=== PATIENT | female | born 2000 | race Caucasian/White ===

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

== ENCOUNTER 2020-02-27 13:08 | Inpatient (IN) | payer MEDICAID, SELFPAY ==
[2020-02-27 13:50] VITALS: BP 120/80; PULSE 97; RESP 14; TEMP 36.6; O2SAT 99; BMI 34.7
--- NOTE | 2020-02-27 14:15 | HMH.EDUTC ---
[facility] [place] Disposition Clinical Impression: Abscess Disposition: Admitted As Inpatient Condition on Discharge: Good Instructions: Boil Referrals: Seth Steele MD [Primary Care Provider] - Time of Disposition: 14:22 Medical Decision Making - Kurt Inquiry Pt receiving controlled substance: No Vital Signs: 02/27/20 13:50 Temperature 97.9 F Temperature Source Temporal Artery Scan Pulse Rate [Right Brachial] 97 H Respiratory Rate 14 Blood Pressure [Right Arm] 120/80 Blood Pressure Mean [Right Arm] 93 Blood Pressure Source [Right Arm] Automatic Cuff 02 Sat by Pulse Oximetry 99 Oxygen Delivery Method Room Air [facility] [place] HPI - General Chief complaint: Urgent Treatment Center Stated complaint: sore on right leg Time Seen by Provider: 02/27/20 14:15 Mode of Arrival: Ambulatory Source of Information: Patient, Parent(s) Limitations: No Limitations Description of Symptoms (Recalled from Triage Doc. by RN): MOTHER REPORTS BOIL TO PATIENT'S RIGHT THIGH. STATES IT STARTED OUT LIKE A PIMPLE APPROX 1 WEEK AGO AND HAS SINCE BECAME ELARGED AND HARDENED HEENT Symptoms (Recalled from RN notes): No Resp Symptoms (Recalled from RN notes): No Skin Symptoms (Recalled from RN notes): Yes MS Symptoms (Recalled from RN notes): No Functional Status (Recalled from RN notes): WNL - History of Present Illness Provider Complaint: 19 yr old female presents for a abbcess on rt thigh. mom states it are started last week but has become worse. - Related Data Home Medications Medication Instructions Recorded Confirmed PARoxetine HCl [Paxil] 10 mg PO DAILY 02/27/20 02/27/20 Allergies Allergy/AdvReac Type Severity Reaction Status Date / Time No Known Allergies Allergy Verified 01/27/19 14:40 - Worker's Comp Is this a Worker's Comp case?: No [facility] History - Hepatitis A Screen Drug use history?: No High risk sexual behaviors?: No History of sexually transmitted infection?: No Currently employed?: No Childcare worker?: No Do you have indoor plumbing?: Yes Do you have electricity?: Yes Attestation statement:: This patient has been screened for Hepatitis A risk factors. I have reviewed the patient's past medical history: Yes Medical History: Denies:: Internal Pacemaker Laterality Cases: Bilateral: Tonsillectomy Other Surgeries: No: Pacemaker Amputation: No Fractures: No - Social History Smoking Status: Never smoker Alcohol Intake: never Alcohol Intake Frequency:: other Substance Use Type: denies use Occupational Status: other Housing: house Household Members: family, caregiver Family Hx:: Cancer, Hypertension ROS Obtained: Yes Systems reviewed as appropriate & no additional complaints - Constitutional Constitutional: Reports system reviewed and no additional complaints, except as docu - Eyes Eyes: Reports system reviewed and no additional complaints, except as docu, Denies dry eyes - ENT Ears, Nose, Mouth, and Throat: Reports system reviewed and no additional complaints, except as docu, Denies sore throat - Cardiovascular Cardiovascular: Reports system reviewed and no additional complaints, except as docu, Denies chest pain - Respiratory Respiratory: Yes system reviewed and no additional complaints, except as docu, No change in phlegm color - Gastrointestinal Gastrointestingal: Reports: system reviewed and no additional complaints, except as docu. Denies: nausea, vomiting - Genitourinary Female Genitourinary: Reports system reviewed and no additional complaints, except as docu, Denies vaginal discharge - Musculoskeletal Musculoskeletal: Reports system reviewed and no additional complaints, except as docu, Denies joint pain - Integumentary/Breasts Skin/Breast: Reports system reviewed and no additional complaints, except as docu, Denies rash - Neurologic Neurologic: Reports system reviewed and no additional complaints, except as docu, Denies dizziness - Endocrine Endocrine: Reports syste
[2020-02-27 15:15] LABS: Basophils # 0.1 K/mm3 (0-0.2); Basophils % 0.6 % (0.1-2.0); Eosinophils # 0.2 K/mm3 (0.0-0.4); Eosinophils % 1.9 % (0.1-12.0); Hematocrit 38.1 % (37.0-47.0); Hemoglobin 12.1 g/dL (12.2-16.2); Lymphocytes # 2.1 K/mm3 (0.7-4.5); Lymphocytes % 19.4 % (10-50); Mean Corpuscular HGB Conc 31.8 g/dL (31.8-35.4); Mean Corpuscular Hemoglobin 26.8 pg (27.0-31.2); Mean Corpuscular Volume 84.4 fl (81-99); Mean Platelet Volume 7.1 fl (7.4-10.4); Monocytes # 0.6 K/mm3 (0.1-1.0); Monocytes % 5.7 % (1.7-9.3); Neutrophils # 7.9 K/mm3 (1.8-7.8); Neutrophils % 72.4 % (37.0-80.0); Platelet Count 326 K/mm3 (142-424); Red Blood Count 4.52 M/mm3 (4.20-5.40); Red Cell Distribution Width 12.7 % (11.5-17.5); White Blood Count 10.9 K/mm3 (4.5-13.0)
[2020-02-27 15:18] LABS: Chloride 104 mmol/L (98-107); Lactic Acid 0.9 mmol/L (0.7-2.1); Potassium 4.4 mmoL/L (3.5-5.1); Sodium 140 mmol/L (136-145)
[2020-02-27 15:21] LABS: Alanine Aminotransferase 25 U/L (12-78); Albumin Level 4.7 g/dl (3.5-5.0); Albumin/Globulin Ratio 1.6 (1.1-1.8); Alkaline Phosphatase 84 U/L (38-126); Anion Gap 15.4 mEq/L (5-15); Aspartate Amino Transferase 24 U/L (14-36); Bilirubin,Total 0.3 mg/dl (0.2-1.3); Blood Urea Nitrogen 8 mg/dl (7-17); Calcium 9.8 mg/dl (8.4-10.2); Carbon Dioxide 25 mmol/L (22.0-30.0); Creatinine Clearance Estimated 199 mL/min (50-200); Estimated Glomerular Filt Rate 108 ml/min (>60); GFR (African American) 130 ML/MIN (>60); Glucose 98 mg/dl (74-100); Total Protein,Serum 7.7 g/dl (6.3-8.2)
[2020-02-27 15:51] LABS: Coronavirus 19 IgG Antibody Negative (Negative); Coronavirus 19 IgM Antibody Negative (Negative)
[2020-02-27 16:05] VITALS: BP 120/80; PULSE 97; RESP 14; TEMP 36.6; O2SAT 99
--- NOTE | 2020-02-27 16:18 | P.CONPHA_ITS ---
- Pharmacy Consult Date: 02/27/20 Time: 16:18 Referring provider: ROSALVA CARVAJAL Reason for Consult:: VANCOMYCIN DOSING Allergies and ADEs:: Allergies Allergy/AdvReac Type Severity Reaction Status Date / Time No Known Allergies Allergy Verified 01/27/19 14:40 Home Medications:: Home Medications Medication Instructions Recorded Confirmed Type PARoxetine HCl [Paxil] 10 mg PO DAILY 02/27/20 02/27/20 History Height: 1.68 m Weight: 97.522 kg Laboratory Results:: Laboratory Results - last 24 hr 02/27/20 14:30: WBC 10.9, RBC 4.52, Hgb 12.1 L, Hct 38.1, MCV 84.4, MCH 26.8 L, MCHC 31.8, RDW 12.7, Plt Count 326, MPV 7.1 L, Neut % (Auto) 72.4, Lymph % (Auto) 19.4, [place] % (Auto) 5.7, Eos % (Auto) 1.9, Baso % (Auto) 0.6, Neut # (Auto) 7.9 H, Lymph # (Auto) 2.1, [place] # (Auto) 0.6, Eos # (Auto) 0.2, Baso # (Auto) 0.1 02/27/20 14:30: Sodium 140, Potassium 4.4, Chloride 104, Carbon Dioxide 25, Anion Gap 15.4 H, BUN 8, Creatinine 0.70, Estimated Creat Clear 199, Estimated GFR 108, Est GFR ( Amer) 130, Glucose 98, Calcium 9.8, Total Bilirubin 0.3, AST 24, ALT 25, Alkaline Phosphatase 84, Total Protein 7.7, Albumin 4.7, Globulin 3.0, Albumin/Globulin Ratio 1.6 02/27/20 14:30: Lactate 0.9 02/27/20 14:30: SARS-CoV-2 IgG Ab (Rapid) Negative, SARS-CoV-2 IgM Ab (Rapid) Negative Medical History: Denies:: Internal Pacemaker Assessment and Plan - Assessment and plan all Dx Assessment and Plan for all problems:: IBW (kg): 58.61 Dosing wt(kg): 97 Estimated Creatinine clearance (ml/min): 119.6 CRCL method: Cockcroft and Gault using ibw(default). Drug selected: Vancomycin Loading dose (mg): 0 Vd (liters): 77.6 (factor used: 0.8 L/kg) John (hr-1): 0.104 Half life (hrs): 6.66 Recommended dose: 2000 mg Interval: 12 hrs Infusion time (hrs): 2.0 Predicted peak (mcg/mL): 32.6 Predicted trough (mcg/mL): 11.52 Total body weight is being used for vancomycin dosing. Recommendations: Give Vancomycin 2000 mg q 12 hrs with an expected Cpeak of 32.6 mcg/ml and an expected Ctrough of 11.52 mcg/ml Thank you for the consult, will continue to follow. JASON CULLEN, EVRITOD
[2020-02-27 16:43] VITALS: BP 129/81; PULSE 86; RESP 18; TEMP 36.8; O2SAT 97; BMI 30.3
--- NOTE | 2020-02-27 16:57 | HMH.GSCON ---
*Admission Date: 02/27/20 *Reason for consult:: Thigh abscess *History of present illness: Patient is a 19-year-old female from [place] with autism spectrum disorder. Apparently she has had a abscess on the lower right lateral thigh for about 1 week. Reportedly this started as a small pimple-like area. She denies any inciting event. She did try to squeeze it without being able to express any contents. It subsequently became much larger. She was brought to the urgent treatment center this afternoon due to the significant swelling and redness of the area. This felt that she would require inpatient management with incision and drainage done under anesthesia. Review of Systems - Review of Systems Review of systems:: unable to obtain - *Neurologic Denies dizziness [facility] History I have reviewed the patient's past medical history: Yes Medical History: Denies:: Internal Pacemaker *Have you ever received a pneumonia vaccine?: No *Have you received a flu vaccine this season?: No Laterality Cases: Bilateral: Tonsillectomy Other Surgeries: No: Pacemaker Amputation: No Fractures: No - *Social History Smoking Status: Never smoker Alcohol Intake: never Alcohol Intake Frequency:: other Substance Use Type: denies use *Occupational Status:: other Housing: house Household Members: family, caregiver *Travel in the last 8 weeks: None Family Hx:: Cancer, Hypertension Meds Home Medications Medication Instructions Recorded Confirmed Type PARoxetine HCl [Paxil] 10 mg PO DAILY 02/27/20 02/27/20 History Allergies Allergy/AdvReac Type Severity Reaction Status Date / Time No Known Allergies Allergy Verified 01/27/19 14:40 Exam Vital signs and Labs for Last 24 Hours: Temp Pulse Resp BP Pulse Ox 98.2 F 86 18 129/81 97 02/27/20 16:43 02/27/20 16:43 02/27/20 16:43 02/27/20 16:43 02/27/20 16:43 Laboratory Results - last 24 hr 02/27/20 14:30: WBC 10.9, RBC 4.52, Hgb 12.1 L, Hct 38.1, MCV 84.4, MCH 26.8 L, MCHC 31.8, RDW 12.7, Plt Count 326, MPV 7.1 L, Neut % (Auto) 72.4, Lymph % (Auto) 19.4, [place] % (Auto) 5.7, Eos % (Auto) 1.9, Baso % (Auto) 0.6, Neut # (Auto) 7.9 H, Lymph # (Auto) 2.1, [place] # (Auto) 0.6, Eos # (Auto) 0.2, Baso # (Auto) 0.1 02/27/20 14:30: Sodium 140, Potassium 4.4, Chloride 104, Carbon Dioxide 25, Anion Gap 15.4 H, BUN 8, Creatinine 0.70, Estimated Creat Clear 199, Estimated GFR 108, Est GFR ( Amer) 130, Glucose 98, Calcium 9.8, Total Bilirubin 0.3, AST 24, ALT 25, Alkaline Phosphatase 84, Total Protein 7.7, Albumin 4.7, Globulin 3.0, Albumin/Globulin Ratio 1.6 02/27/20 14:30: Lactate 0.9 02/27/20 14:30: SARS-CoV-2 IgG Ab (Rapid) Negative, SARS-CoV-2 IgM Ab (Rapid) Negative I & O for Last 24 hours: Intake & Output 02/25/20 02/26/20 02/27/20 02/28/20 11:59 11:59 11:59 11:59 Weight 199 lb 9 oz - *Routine Skin Exam Comments: On the patient's right lower lateral thigh area there is an obvious skin abscess. There is at least 10 or 12 cm of cellulitis with minimal induration. However, centrally there is a 3 to 4 cm area of purplish fluctuance. There is no drainage. There is central punctate 1 or 2 mm eschar. Results - Labs 02/27/20 14:30 02/27/20 14:30 Laboratory Results - last 24 hr 02/27/20 14:30: WBC 10.9, RBC 4.52, Hgb 12.1 L, Hct 38.1, MCV 84.4, MCH 26.8 L, MCHC 31.8, RDW 12.7, Plt Count 326, MPV 7.1 L, Neut % (Auto) 72.4, Lymph % (Auto) 19.4, [place] % (Auto) 5.7, Eos % (Auto) 1.9, Baso % (Auto) 0.6, Neut # (Auto) 7.9 H, Lymph # (Auto) 2.1, [place] # (Auto) 0.6, Eos # (Auto) 0.2, Baso # (Auto) 0.1 02/27/20 14:30: Sodium 140, Potassium 4.4, Chloride 104, Carbon Dioxide 25, Anion Gap 15.4 H, BUN 8, Creatinine 0.70, Estimated Creat Clear 199, Estimated GFR 108, Est GFR ( Amer) 130, Glucose 98, Calcium 9.8, Total Bilirubin 0.3, AST 24, ALT 25, Alkaline Phosphatase 84, Total Protein 7.7, Albumin 4.7, Globulin 3.0, Albumin/Globulin Ratio 1.6 02/27/20 14:30: Lactat
--- NOTE | 2020-02-27 17:04 | HMH.HP ---
*Admission Date: 02/27/20 *Chief complaint: abscess *History of present illness: 19-year-old female on the autism spectrum disorder. Apparently she has had a abscess on the lower right lateral thigh for about 1 week. Per mom this started as a small pimple-like area. per mom she did try to squeeze it without being able to express any contents. It subsequently became much larger within 2 days. She was brought to the urgent treatment center this afternoon due to the significant swelling and redness of the area. surgery consult, due to her autism it was felt that she would require inpatient management with incision and drainage done under anesthesia. [facility] History I have reviewed the patient's past medical history: Yes Medical History: Reports:: Anxiety Denies:: Internal Pacemaker *Have you ever received a pneumonia vaccine?: No *Have you received a flu vaccine this season?: No Comment:: autiusm Laterality Cases: Bilateral: Tonsillectomy Other Surgeries: No: Pacemaker Amputation: No Fractures: No - *Social History Smoking Status: Never smoker Alcohol Intake: never Alcohol Intake Frequency:: other Substance Use Type: denies use *Occupational Status:: other Housing: house Household Members: family, caregiver *Travel in the last 8 weeks: None Family Hx:: Cancer, Hypertension Review of Systems - Review of Systems Review of systems:: pertinent systems reviewed and negative unless documented below - Constitutional Denies body ache(s) - Eyes Denies blurry vision - ENT Denies bleeding gums - *Cardiovascular Denies excessive sweating - *Respiratory Denies chest congestion - *Gastrointestinal Denies bloating - *Genitourinary Denies urinary urgency - *Musculoskeletal Denies joint pain - Integumentary/Breasts Reports other, Denies rash - *Neurologic Denies dizziness - Psychiatric Reports anxiety - Endocrine Denies excessive sweating - Hematologic/Lymphatic Denies easy bruising - Allergic/Immunologic Denies itchy eyes Meds Home Medications Medication Instructions Recorded Confirmed Type PARoxetine HCl [Paxil] 10 mg PO DAILY 02/27/20 02/27/20 History Allergies Allergy/AdvReac Type Severity Reaction Status Date / Time No Known Allergies Allergy Verified 01/27/19 14:40 Exam Vital signs and Labs for Last 24 Hours: Temp Pulse Resp BP Pulse Ox 98.2 F 86 18 129/81 97 02/27/20 16:43 02/27/20 16:43 02/27/20 16:43 02/27/20 16:43 02/27/20 16:43 Laboratory Results - last 24 hr 02/27/20 14:30: WBC 10.9, RBC 4.52, Hgb 12.1 L, Hct 38.1, MCV 84.4, MCH 26.8 L, MCHC 31.8, RDW 12.7, Plt Count 326, MPV 7.1 L, Neut % (Auto) 72.4, Lymph % (Auto) 19.4, [place] % (Auto) 5.7, Eos % (Auto) 1.9, Baso % (Auto) 0.6, Neut # (Auto) 7.9 H, Lymph # (Auto) 2.1, [place] # (Auto) 0.6, Eos # (Auto) 0.2, Baso # (Auto) 0.1 02/27/20 14:30: Sodium 140, Potassium 4.4, Chloride 104, Carbon Dioxide 25, Anion Gap 15.4 H, BUN 8, Creatinine 0.70, Estimated Creat Clear 199, Estimated GFR 108, Est GFR ( Amer) 130, Glucose 98, Calcium 9.8, Total Bilirubin 0.3, AST 24, ALT 25, Alkaline Phosphatase 84, Total Protein 7.7, Albumin 4.7, Globulin 3.0, Albumin/Globulin Ratio 1.6 02/27/20 14:30: Lactate 0.9 02/27/20 14:30: SARS-CoV-2 IgG Ab (Rapid) Negative, SARS-CoV-2 IgM Ab (Rapid) Negative I & O for Last 24 hours: Intake & Output 02/25/20 02/26/20 02/27/20 02/28/20 11:59 11:59 11:59 11:59 Weight 199 lb 9 oz - Constitutional no acute distress - *Routine HEENT Exam Head: Present: normocephalic Eye: Present: PERRL ENT: Present: mucous membranes moist - *Routine Neck Exam Present: supple. Absent: lymphadenopathy - *Routine Respiratory Exam Present: CTA bilaterally - *Routine Cardiovascular Exam Present: RRR - *Routine Abdominal Exam Present: soft, normoactive bowel sounds. Absent: tenderness - *Routine Extremities Exam Present: normal capillary refill. Absent: cyanosis, clubbin
--- NOTE | 2020-02-27 19:39 | PC.NURSE ---
Notified Yocasta Swann and Pamela that pt is to have I and D at 730 in the morning
[2020-02-27 20:00] VITALS: BP 151/90; PULSE 85; RESP 14; TEMP 36.7; O2SAT 94
[2020-02-28] VITALS (21 sets, daily range): BP systolic 94–130; BP diastolic 49–81; PULSE 75–105; RESP 16–19; TEMP 36.5–37; O2SAT 90–98; BMI 29.7
--- NOTE | 2020-02-28 05:11 | PC.NURSE ---
Pt is alert and oriented x4, hx autism. Able to answer all questions and follow commands appropriately. Pt rested well with eyes closed this shift with mother at bedside. No c/o pain. Tolerated RA well with no c/o SOA. Bilateral lungs noted clear t/o upon auscultation. Denies N/V/D. Denies abdominal tenderness upon palpation. Abscess to right outer thigh noted discolored with edema. Encouraged pt not to touch abscess, pt verbalized understanding. Consent obtained for I&D with Allran. Mother signed consent at bedside with pt. Pt able to point to sx site. Refused TEDS. No edema noted. VSS. Remains safe. Call light within reach. Will continue to monitor.
--- NOTE | 2020-02-28 06:46 | HMH.ANESCL ---
[facility] Anesthesia Checklist - Patient Identification Patient Identification: Arm Band - Structural Data Admitted From: Inpatient Planned Operative Procedure/s: i and d thigh abcess Consent for Planned Operative Procedure(s) Verified: Yes Verified Documents: History and Physical - NPO Status Verified Time NPO: 00:00 - Additional verifications Patient : No Anesthesia Reactions: No Hx Blood Transfusions: No Blood Transfusion Reaction: No Cephalosporin Allergy: No Previous Colonoscopy: No - Cardiovascular Assessment Heart Sounds: S1 & S2 Pulse Strength: Baseline Pulse Rhythm: Regular Peripheral Edema: No - Airway Assessment C-Spine Mobility Assessed: Yes TMJ Mobility Assessed: Yes Dentition: Good Dentition - Neurological Assessment Level of Consciousness: Awake, Alert, Appropriate Hx Seizures: No Numbness or tingling in extremities: No - Anesthesia Plan Anesthesia Risk discussed: Yes Anesthesia Plan: Verified ASA Class: II Anesthesia Type: General [facility] History I have reviewed the patient's past medical history: Yes Medical History: Reports:: Anxiety Denies:: Internal Pacemaker *Have you ever received a pneumonia vaccine?: Yes *Have you received a flu vaccine this season?: No Anesthesia experience/problems:: none Laterality Cases: Bilateral: Tonsillectomy Other Surgeries: No: Pacemaker Amputation: No Fractures: No - *Social History Last grade of school completed: High school graduate Smoking Status: Never smoker Alcohol Intake: never Alcohol Intake Frequency:: other Substance Use Type: denies use *Occupational Status:: disabled Housing: house Household Members: spouse, family *Travel in the last 8 weeks: None - Psychiatric History Pschychiatric History:: Reports:: Anxiety Family Hx:: No significant family history
--- NOTE | 2020-02-28 06:58 | PC.WOUNDNOTE ---
Wound Location: Right Thigh Length:3 cm Width:3 cm Depth: Undermining Y/N: N Tunneling cm:N Granulation %: Slough/necrotic tissue %: Inflammation/swelling Y/N:Y Pain and/or tenderness Y/N:Y Exudate: None Serosanguinous Sanguinous Serosanguinous Seropurulent Purulent Color: Clear Afia Cloudy/milky [place] Red Green Yellow Brown Tineo Blue Consistency: Thick Thin Amount:None None Scant Small Moderate Large Odor Y/N:N
[2020-02-28 07:01] LABS: Basophils # 0.1 K/mm3 (0-0.2); Basophils % 0.5 % (0.1-2.0); Eosinophils # 0.2 K/mm3 (0.0-0.4); Eosinophils % 2.1 % (0.1-12.0); Hematocrit 35.8 % (37.0-47.0); Hemoglobin 11.9 g/dL (12.2-16.2); Lymphocytes # 2.3 K/mm3 (0.7-4.5); Lymphocytes % 25.2 % (10-50); Mean Corpuscular HGB Conc 33.2 g/dL (31.8-35.4); Mean Corpuscular Hemoglobin 27.9 pg (27.0-31.2); Mean Corpuscular Volume 84.2 fl (81-99); Mean Platelet Volume 7.2 fl (7.4-10.4); Monocytes # 0.5 K/mm3 (0.1-1.0); Monocytes % 5.5 % (1.7-9.3); Neutrophils # 6.1 K/mm3 (1.8-7.8); Neutrophils % 66.7 % (37.0-80.0); Platelet Count 256 K/mm3 (142-424); Red Blood Count 4.25 M/mm3 (4.20-5.40); Red Cell Distribution Width 12.6 % (11.5-17.5); White Blood Count 9.2 K/mm3 (4.5-13.0)
[2020-02-28 07:20] LABS: HCG Qualitative, Serum Negative (Negative)
--- NOTE | 2020-02-28 07:54 | P.OP_ITS ---
Date of procedure: 02/28/20 Pre-op Diagnosis:: Right thigh abscess Post-op Diagnosis:: Same Procedure performed:: Incision and drainage of right thigh abscess with debridement of skin and subcutaneous tissues Surgeon:: Roshan Elam MD PAY PER CLICK STRATEGIST:: Gonzalez Dennison Anesthesia: LMA Estimated blood loss (mL): 5 Clinical Note:: Patient is a 19-year-old female with autism spectrum disorder who had presented to the urgent treatment center yesterday afternoon with a 1 week history of progressive right thigh soft tissue infection without inciting event. She was found to have a 3 to 4 cm area of fluctuance with about 12 cm of cellulitis with some minor induration. Plan was for incision and drainage and debridement in the operating room. Operative findings:: She has soft tissue infection with abscess with focal necrotizing cellulitis. Operative note:: Patient was taken to the operating room. She was given preoperative intravenous clindamycin. She was positioned in the supine position. General anesthesia was induced. Area was prepped and draped. There was a punctate eschar. Incision was made adjacent to this. There was very thick pus which exuded from the wound. This was sent for culture. The wound was inspected. There was underlying necrotic tissue. Therefore sequential debridement of the necrotic tissue was performed to relatively healthy appearing tissue. This resulted in overall defect approximately 2.5 cm diameter. It was approximately 1 cm in depth. The wound was thoroughly irrigated. Hemostasis was achieved with electrocautery. Local anesthetic was infiltrated. Wound was packed with saline moistened gauze and covered with clean dry sterile dressing. Condition: stable Disposition: PACU Specimens:: Debrided tissue Complications:: None immediately apparent
--- NOTE | 2020-02-28 08:01 | P.PN_ITS ---
[facility] Anesthesia Record Part I Intake, IV Amount: 200 Estimated blood loss (mL): 10 Urine output (mL): 0 Blood Products used (#): none Blood Pressure: 107/81 SaO2: 90 Pulse Rate: 84 Respiratory Rate: 18 Temperature: 98.3 F Patient is:: Drowsy, Nasal O2, Stable Stable to PACU at:: 08:00
--- NOTE | 2020-02-28 08:43 | SUR.PHASEI ---
Detailed report called to Leeroy Duvall RN. Pt transferred to floor via bed accompanied by myself, Adán and Mee Meza, SRNA's and pt's mother.
--- NOTE | 2020-02-28 10:40 | P.PN_ITS ---
[facility] Anesthesia Record Part II Discharge Time: 08:30 Destination: Medical Surgical Department PACU nurse assessment reviewed?: Yes Patient Condition:: Good Anesthesia Complications:: None Swallowing reflex intact?: Yes Cyanosis?: No Blood Pressure: 94/65 Pulse Rate: 105 Temperature: 98.0 F Mental Status: Alert & Oriented Pain level:: 0 Nausea and/or vomitting:: None Intake, IV Amount: 35
--- NOTE | 2020-02-28 14:20 | P.CONPHA_ITS ---
[facility] Pharmacy VTE Monitoring - Patient Demographics Admission date: 02/27/20 Report Date: 02/28/20 Time: 14:20 Allergies/Adverse Reactions: Patient Allergies No Known Allergies Allergy (Verified 01/27/19 14:40) Height: 1.73 m Weight: 89.018 kg Patient Problems: Current Active Problems Abscess (Acute) Autism (Chronic) Anxiety (Chronic) - VTE Risk Labs: VTE Related Lab Results Hgb 11.9 g/dL (12.2-16.2) L 02/28/20 05:55 Hct 35.8 % (37.0-47.0) L 02/28/20 05:55 Plt Count 256 K/mm3 (142-424) 02/28/20 05:55 BUN 8 mg/dl (7-17) 02/27/20 14:30 Creatinine 0.70 mg/dl (0.52-1.04) 02/27/20 14:30 Estimated Creat Clear 199 mL/min (50-200) 02/27/20 14:30 VTE Score: 1 VTE Risk Level: Very Low Risk - Prophylaxis VTE Prophylaxis Ordered?: Yes Types of VTE Prophylaxis: TEDS Knee High Location of Applied Device: Bilateral Lower Extremeties
--- NOTE | 2020-02-28 14:21 | HMH.PHAINT ---
MEDICATION RECONCILIATION COMPLETED ON PATIENT USING EXTERNAL FILL HISTORY FROM PHARMACY. -JASON CULLEN, VERITOD
--- NOTE | 2020-02-28 16:52 | P.PN_ITS ---
Internal Medicine - PN: Subj *Date: 02/28/20 *Time: 14:00 Interval history: pt laying in bed sleeping Exam Vital signs and Labs for Last 24 Hours: Temp Pulse Resp BP Pulse Ox 98.1 F 93 H 18 118/65 95 02/28/20 14:35 02/28/20 14:35 02/28/20 14:35 02/28/20 14:35 02/28/20 14:35 Laboratory Results - last 24 hr 02/27/20 07:13: Serum HCG, Qual Negative 02/28/20 05:55: WBC 9.2, RBC 4.25, Hgb 11.9 L, Hct 35.8 L, MCV 84.2, MCH 27.9, MCHC 33.2, RDW 12.6, Plt Count 256, MPV 7.2 L, Neut % (Auto) 66.7, Lymph % (Auto) 25.2, [place] % (Auto) 5.5, Eos % (Auto) 2.1, Baso % (Auto) 0.5, Neut # (Auto) 6.1, Lymph # (Auto) 2.3, [place] # (Auto) 0.5, Eos # (Auto) 0.2, Baso # (Auto) 0.1 I & O for Last 24 hours: Intake & Output 02/26/20 02/27/20 02/28/20 02/29/20 11:59 11:59 11:59 11:59 Intake Total 1313 / 1313 480 / 480 Output Total 300 / 300 1400 / 1400 Balance 1013 / 1013 -920 / -920 Weight 196 lb 4 oz Microbiology Reports for the Last 24 Hours: Microbiology 02/28/20 12:00 Thigh - Right Gram Stain - Final - Constitutional no acute distress - *Routine HEENT Exam Head: Present: normocephalic Eye: Present: PERRL ENT: Present: mucous membranes moist - *Routine Neck Exam Present: supple. Absent: lymphadenopathy - *Routine Respiratory Exam Present: CTA bilaterally - *Routine Cardiovascular Exam Present: RRR - *Routine Abdominal Exam Present: soft, normoactive bowel sounds. Absent: tenderness - *Routine Extremities Exam Present: normal capillary refill. Absent: cyanosis, clubbing, edema Comments: dressing c/d/i - *Routine Skin Exam Present: warm, wounds. Absent: rash Comments: dressing c/d/i - *Routine Neurological Exam Present: alert Assessment and Plan (1) Abscess Status: Acute Category: Medical Code(s): L02.91 - Cutaneous abscess, unspecified (2) Anxiety Status: Chronic Category: Medical Code(s): F41.9 - Anxiety disorder, unspecified (3) Autism Status: Chronic Category: Medical Code(s): F84.0 - Autistic disorder - Assessment and plan all Dx Assessment and Plan for all problems:: dario rounded earlier all orders per dario follow with aye cazares dc in am
--- NOTE | 2020-02-28 20:04 | PC.NURSE ---
ao*4, able to make needs known to staff, has tolerated regular diet since returning to the floor, RA with no complaints, pt denies pain, vital signs stable, ambulated to bathroom multiple times today, medicated with prn zofran and tylenol with good effectiveness.
[2020-02-29] VITALS: BP 112/58; PULSE 83; RESP 17; TEMP 36.6; O2SAT 98
[2020-02-29 03:51] VITALS: BP 101/56; PULSE 97; RESP 16; TEMP 36.6; O2SAT 97
[2020-02-29 05:25] VITALS: BMI 29.1
[2020-02-29 07:37] LABS: Basophils % 0.2 % (0.1-2.0); Eosinophils # 0.1 K/mm3 (0.0-0.4); Eosinophils % 1.1 % (0.1-12.0); Hematocrit 35.6 % (37.0-47.0); Hemoglobin 11.8 g/dL (12.2-16.2); Lymphocytes # 2.4 K/mm3 (0.7-4.5); Lymphocytes % 25.7 % (10-50); Mean Corpuscular HGB Conc 33.3 g/dL (31.8-35.4); Mean Corpuscular Hemoglobin 28.2 pg (27.0-31.2); Mean Corpuscular Volume 84.5 fl (81-99); Mean Platelet Volume 7.5 fl (7.4-10.4); Monocytes # 0.6 K/mm3 (0.1-1.0); Neutrophils # 6.1 K/mm3 (1.8-7.8); Neutrophils % 66.1 % (37.0-80.0); Platelet Count 286 K/mm3 (142-424); Red Blood Count 4.21 M/mm3 (4.20-5.40); Red Cell Distribution Width 13.4 % (11.5-17.5); White Blood Count 9.2 K/mm3 (4.5-13.0)
[2020-02-29 07:50] LABS: Chloride 105 mmol/L (98-107); Sodium 142 mmol/L (136-145)
[2020-02-29 07:51] LABS: Potassium 3.6 mmoL/L (3.5-5.1)
--- NOTE | 2020-02-29 07:53 | PC.NURSE ---
Pt is alert and oriented x4. Pt rested well with eyes closed for majority of shift. Denies pain when asked. C/o nausea and vomiting at beginning of shift. Administered Zofran x1 per MAY. pt tolerated well with no further complaints. Tolerated RA well. Dsg to right thigh noted c/d/i. First dsg change to be done this am with MD at bedside. VSS. Remains safe. Call light within reach. Mother remains at bedside t/o shift. No acute changes noted from previous shift. Will continue to monitor.
[2020-02-29 07:54] LABS: Anion Gap 12.6 mEq/L (5-15); Blood Urea Nitrogen 10 mg/dl (7-17); Carbon Dioxide 28 mmol/L (22.0-30.0); Creatinine Clearance Estimated 178 mL/min (50-200); Estimated Glomerular Filt Rate 108 ml/min (>60); GFR (African American) 130 ML/MIN (>60); Glucose 94 mg/dl (74-100)
[2020-02-29 08:00] VITALS: BP 129/79; PULSE 88; RESP 16; TEMP 36.8; O2SAT 96
--- NOTE | 2020-02-29 08:22 | HMH.GSPN ---
Subjective Patient reports: no new complaints Progress Note: A&P (1) Abscess Status: Acute (2) Anxiety Status: Chronic (3) Autism Status: Chronic Assessment and Plan for All Diagnoses:: Dressing change performed at bedside. Patient tolerated relatively well. Recommend continuation of IV vancomycin for now and await cultures. Exam Vital signs and Labs for Last 24 Hours: Temp Pulse Resp BP Pulse Ox 97.9 F 97 H 16 101/56 L 97 02/29/20 03:51 02/29/20 03:51 02/29/20 03:51 02/29/20 03:51 02/29/20 03:51 Laboratory Results - last 24 hr 02/29/20 06:47: WBC 9.2, RBC 4.21, Hgb 11.8 L, Hct 35.6 L, MCV 84.5, MCH 28.2, MCHC 33.3, RDW 13.4, Plt Count 286, MPV 7.5, Neut % (Auto) 66.1, Lymph % (Auto) 25.7, [place] % (Auto) 7.0, Eos % (Auto) 1.1, Baso % (Auto) 0.2, Neut # (Auto) 6.1, Lymph # (Auto) 2.4, [place] # (Auto) 0.6, Eos # (Auto) 0.1, Baso # (Auto) 0.0 02/29/20 06:47: Sodium 142, Potassium 3.6, Chloride 105, Carbon Dioxide 28, Anion Gap 12.6, BUN 10, Creatinine 0.70, Estimated Creat Clear 178, Estimated GFR 108, Est GFR ( Amer) 130, Glucose 94, Calcium 9.0 I & O for Last 24 hours: Intake & Output 02/26/20 02/27/20 02/28/20 02/29/20 11:59 11:59 11:59 11:59 Intake Total 1313 / 1313 1764 / 1764 Output Total 300 / 300 1650 / 1650 Balance 1013 / 1013 114 / 114 Weight 196 lb 4 oz 192 lb 4 oz Microbiology Reports for the Last 24 Hours: Microbiology 02/28/20 12:00 Thigh - Right Gram Stain - Final - *Routine Skin Exam Comments: Persistent cellulitis. Wound clean.
--- NOTE | 2020-02-29 09:05 | PC.NURSE ---
DSG CHANGE PERFORMED BY ELISA LUTZ THIS AM, 4X4'S/KERLEX/VICKY WRAP IN PLACE C/D/I, PT DENIES PAIN AT THIS TIME, WILL CONTINUE TO MONITOR.
--- NOTE | 2020-02-29 12:26 | HMH.ACPN2 ---
Internal Medicine - PN: Subj *Date: 03/01/20 *Time: 06:23 Interval history: doing better after surg i/d - awaiting culture Exam Vital signs and Labs for Last 24 Hours: Temp Pulse Resp BP Pulse Ox 98.3 F 88 16 129/79 96 02/29/20 08:00 02/29/20 08:00 02/29/20 08:00 02/29/20 08:00 02/29/20 08:00 Laboratory Results - last 24 hr 02/29/20 06:47: WBC 9.2, RBC 4.21, Hgb 11.8 L, Hct 35.6 L, MCV 84.5, MCH 28.2, MCHC 33.3, RDW 13.4, Plt Count 286, MPV 7.5, Neut % (Auto) 66.1, Lymph % (Auto) 25.7, [place] % (Auto) 7.0, Eos % (Auto) 1.1, Baso % (Auto) 0.2, Neut # (Auto) 6.1, Lymph # (Auto) 2.4, [place] # (Auto) 0.6, Eos # (Auto) 0.1, Baso # (Auto) 0.0 02/29/20 06:47: Sodium 142, Potassium 3.6, Chloride 105, Carbon Dioxide 28, Anion Gap 12.6, BUN 10, Creatinine 0.70, Estimated Creat Clear 178, Estimated GFR 108, Est GFR ( Amer) 130, Glucose 94, Calcium 9.0 I & O for Last 24 hours: Intake & Output 02/27/20 02/28/20 02/29/20 03/01/20 11:59 11:59 11:59 11:59 Intake Total 1313 / 1313 2124 / 2124 Output Total 300 / 300 1650 / 1650 Balance 1013 / 1013 474 / 474 Weight 196 lb 4 oz 192 lb 4 oz Microbiology Reports for the Last 24 Hours: Microbiology 02/28/20 12:00 Thigh - Right Gram Stain - Final 02/28/20 12:00 Thigh - Right Abscess Culture - Preliminary Gram Positive Cocci - Constitutional no acute distress - *Routine HEENT Exam Head: Present: normocephalic Eye: Present: EOMI, PERRL ENT: Present: mucous membranes dry - *Routine Neck Exam Present: supple - *Routine Respiratory Exam Present: CTA bilaterally - *Routine Cardiovascular Exam Present: RRR - *Routine Extremities Exam Absent: calf tenderness - *Routine Skin Exam Comments: wd with dressing - *Routine Neurological Exam Present: CN II-XII intact Assessment and Plan (1) Abscess Status: Acute Category: Medical Code(s): L02.91 - Cutaneous abscess, unspecified (2) Anxiety Status: Chronic Category: Medical Code(s): F41.9 - Anxiety disorder, unspecified (3) Autism Status: Chronic Category: Medical Code(s): F84.0 - Autistic disorder (4) Obesity (BMI 30.0-34.9) Status: Acute Category: Medical Code(s): E66.9 - Obesity, unspecified
[2020-02-29 16:00] VITALS: BP 121/72; PULSE 88; RESP 18; TEMP 36.8; O2SAT 96
--- NOTE | 2020-02-29 18:09 | PC.NURSE ---
SPOKE WITH LAB, VANC TROUGH 30 MINS REMAINING
[2020-02-29 18:54] LABS: Vancomycin,Trough 7.4 ug/mL (5.0-10.0)
[2020-02-29 20:00] VITALS: BP 125/72; PULSE 81; RESP 14; TEMP 36.8; O2SAT 99
[2020-03-01 04:00] VITALS: BP 120/71; PULSE 79; RESP 16; TEMP 36.9; O2SAT 99
[2020-03-01 06:48] LABS: Basophils # 0.1 K/mm3 (0-0.2); Basophils % 0.5 % (0.1-2.0); Eosinophils # 0.2 K/mm3 (0.0-0.4); Eosinophils % 2.1 % (0.1-12.0); Hematocrit 38.3 % (37.0-47.0); Hemoglobin 12.7 g/dL (12.2-16.2); Lymphocytes # 2.7 K/mm3 (0.7-4.5); Lymphocytes % 26.3 % (10-50); Mean Corpuscular HGB Conc 33.3 g/dL (31.8-35.4); Mean Corpuscular Hemoglobin 28.6 pg (27.0-31.2); Mean Platelet Volume 7.5 fl (7.4-10.4); Monocytes # 0.7 K/mm3 (0.1-1.0); Neutrophils # 6.6 K/mm3 (1.8-7.8); Platelet Count 299 K/mm3 (142-424); Red Blood Count 4.45 M/mm3 (4.20-5.40); Red Cell Distribution Width 13.6 % (11.5-17.5); White Blood Count 10.2 K/mm3 (4.5-13.0)
--- NOTE | 2020-03-01 06:52 | HMH.GSPN ---
Subjective Narrative: Rested well. Tolerated another dressing change. Progress Note: A&P (1) Abscess Status: Acute (2) Anxiety Status: Chronic (3) Autism Status: Chronic (4) Obesity (BMI 30.0-34.9) Status: Acute Assessment and Plan for All Diagnoses:: Continue wound care. Gram stain reveals GPC, culture and sensitivity pending. Probable dc today once sensitivities return on oral antibiotics and wound care (saline moistened gauze packing once daily) Exam Vital signs and Labs for Last 24 Hours: Temp Pulse Resp BP Pulse Ox 98.4 F 79 16 120/71 99 03/01/20 04:00 03/01/20 04:00 03/01/20 04:00 03/01/20 04:00 03/01/20 04:00 Laboratory Results - last 24 hr 02/29/20 06:47: WBC 9.2, RBC 4.21, Hgb 11.8 L, Hct 35.6 L, MCV 84.5, MCH 28.2, MCHC 33.3, RDW 13.4, Plt Count 286, MPV 7.5, Neut % (Auto) 66.1, Lymph % (Auto) 25.7, [place] % (Auto) 7.0, Eos % (Auto) 1.1, Baso % (Auto) 0.2, Neut # (Auto) 6.1, Lymph # (Auto) 2.4, [place] # (Auto) 0.6, Eos # (Auto) 0.1, Baso # (Auto) 0.0 02/29/20 06:47: Sodium 142, Potassium 3.6, Chloride 105, Carbon Dioxide 28, Anion Gap 12.6, BUN 10, Creatinine 0.70, Estimated Creat Clear 178, Estimated GFR 108, Est GFR ( Amer) 130, Glucose 94, Calcium 9.0 02/29/20 16:50: Vancomycin Trough 7.4 I & O for Last 24 hours: Intake & Output 02/27/20 02/28/20 02/29/20 03/01/20 11:59 11:59 11:59 11:59 Intake Total 1313 / 1313 2124 / 2124 1200 / 1200 Output Total 300 / 300 1650 / 1650 Balance 1013 / 1013 474 / 474 1200 / 1200 Weight 196 lb 4 oz 192 lb 4 oz 198 lb 7 oz Microbiology Reports for the Last 24 Hours: Microbiology 02/27/20 14:30 Blood Blood Culture - Preliminary NO GROWTH AFTER 48 HOURS 02/27/20 14:30 Blood Blood Culture - Preliminary NO GROWTH AFTER 48 HOURS 02/28/20 12:00 Thigh - Right Gram Stain - Final 02/28/20 12:00 Thigh - Right Abscess Culture - Preliminary Gram Positive Cocci - *Routine Extremities Exam Comments: Dressed
[2020-03-01 06:55] LABS: Chloride 104 mmol/L (98-107); Potassium 4.2 mmoL/L (3.5-5.1); Sodium 138 mmol/L (136-145)
[2020-03-01 06:58] LABS: Anion Gap 11.2 mEq/L (5-15); Blood Urea Nitrogen 9 mg/dl (7-17); Carbon Dioxide 27 mmol/L (22.0-30.0); Creatinine Clearance Estimated 214 mL/min (50-200); Estimated Glomerular Filt Rate 129 ml/min (>60); GFR (African American) 156 ML/MIN (>60)
[2020-03-01 06:59] LABS: Calcium 9.3 mg/dl (8.4-10.2); Glucose 95 mg/dl (74-100)
[2020-03-01 08:00] VITALS: BP 126/66; PULSE 92; RESP 18; TEMP 36.8; O2SAT 97
[2020-03-01 09:06] VITALS: PULSE 100
--- NOTE | 2020-03-01 09:49 | HMH.ACPN2 ---
Internal Medicine - PN: Subj *Date: 03/01/20 *Time: 09:49 Interval history: 19-year-old female patient resting quietly in bed respirations easy even, dressing clean dry and intact her right thigh. General surgery has seen this morning and performed dressing change to right thigh. Right thigh dressing right now is clean dry and intact. Mother is at bedside, explained to patient and mother that wound cultures sensitivities should be in today, and will discharge after. If not in today the sensitivities should resulted in a.m. Patient and mother verbalized understanding Exam Vital signs and Labs for Last 24 Hours: Temp Pulse Resp BP Pulse Ox 98.4 F 85 17 141/69 H 96 03/01/20 20:00 03/01/20 20:00 03/01/20 20:00 03/01/20 20:00 03/01/20 20:00 Laboratory Results - last 24 hr 03/01/20 06:10: WBC 10.2, RBC 4.45, Hgb 12.7, Hct 38.3, MCV 86.0, MCH 28.6, MCHC 33.3, RDW 13.6, Plt Count 299, MPV 7.5, Neut % (Auto) 64.0, Lymph % (Auto) 26.3, [place] % (Auto) 7.0, Eos % (Auto) 2.1, Baso % (Auto) 0.5, Neut # (Auto) 6.6, Lymph # (Auto) 2.7, [place] # (Auto) 0.7, Eos # (Auto) 0.2, Baso # (Auto) 0.1 03/01/20 06:10: Sodium 138, Potassium 4.2, Chloride 104, Carbon Dioxide 27, Anion Gap 11.2, BUN 9, Creatinine 0.60, Estimated Creat Clear 214, Estimated GFR 129, Est GFR ( Amer) 156, Glucose 95, Calcium 9.3 I & O for Last 24 hours: Intake & Output 02/27/20 02/28/20 02/29/20 03/01/20 23:59 23:59 23:59 23:59 Intake Total 240 / 240 2032 / 3 2364 / 2364 2533 / 2533 Output Total 1700 / 1700 250 / 250 Balance 240 / 240 333 / 453 2113 / 211 253 / 2533 Weight 199 lb 9 oz 196 lb 4 oz 192 lb 4 oz 198 lb 7 oz Microbiology Reports for the Last 24 Hours: Microbiology 02/28/20 12:00 Thigh - Right - Final 02/28/20 12:00 Thigh - Right - Final 02/28/20 12:00 Thigh - Right - Final - Constitutional no acute distress, cooperative - *Routine HEENT Exam Head: Present: normocephalic Eye: Present: EOMI ENT: Present: mucous membranes moist - *Routine Neck Exam Present: full ROM, trachea midline. Absent: tracheal deviation - *Routine Respiratory Exam Present: CTA bilaterally. Absent: accessory muscle use, patient mechanically ventilated - *Routine Cardiovascular Exam Present: RRR. Absent: bradycardia - *Routine Abdominal Exam Present: soft, normoactive bowel sounds. Absent: tenderness, firm - *Routine Extremities Exam Present: full ROM, pulses intact, calf tenderness. Absent: cyanosis, edema - *Routine Skin Exam Present: dry, warm, wounds. Absent: cyanosis, erythema Comments: Drsg to R Thigh C/D/I - *Routine Neurological Exam Present: alert, altered mental status, normal speech, tremors. Absent: motor deficit - Routine Psychiatric Exam Present: cooperative Assessment and Plan (1) Abscess Status: Acute Category: Medical Code(s): L02.91 - Cutaneous abscess, unspecified (2) Anxiety Status: Chronic Category: Medical Code(s): F41.9 - Anxiety disorder, unspecified (3) Autism Status: Chronic Category: Medical Code(s): F84.0 - Autistic disorder (4) Obesity (BMI 30.0-34.9) Status: Acute Category: Medical Code(s): E66.9 - Obesity, unspecified - Assessment and plan all Dx Assessment and Plan for all problems:: Rounded with Dr. Steele, all orders per Dr. Steele: 1. We will discharge after sensitivities resulted 2. Continue current medical regimen
--- NOTE | 2020-03-01 10:13 | SW/DCPLANNER ---
Addendum entered by Ingrid Haque 03/02/20 11:18: Brad with [facility] is looking into at home services for this patient. Addendum entered by Ingrid Haque 03/02/20 09:13: This patient will discharge home today. Patients mother is agreeable to complete wound care services at home. Mother feels comfortable with this and understands that she will need to buy supplies for wound care. I have also informed patients nurse (Renee) regarding informing patients mother regarding dressing supplies needed. I will also contact [facility] to see if this patient is qualified for any at home services. Patient will discharge home today. Original Note: I have discussed discharge plans with patients mother this morning. I have explained to patients mother regarding dressing changes: return to [facility] as outpatient daily or mom to complete dressing changes at home (home health if covered by insurance). Mom stated that she was unsure of plan: did not know if she could complete dressing changes herself but also does not know if she can transport patient everyday for outpatient dressing changes at [facility]. I explained to mother that she would need to consider these options and I will follow up with her this afternoon. Patient could discharge later today.
--- NOTE | 2020-03-01 11:28 | HMH.PHACONS ---
- Pharmacy Consult Date: 03/01/20 Time: 11:28 Referring provider: DR. GAMEZ Reason for Consult:: VANCOMYCIN TROUGH LEVEL Allergies and ADEs:: Allergies Allergy/AdvReac Type Severity Reaction Status Date / Time No Known Allergies Allergy Verified 01/27/19 14:40 Home Medications:: Home Medications Medication Instructions Recorded Confirmed Type PARoxetine HCl [Paxil] 10 mg PO DAILY 02/27/20 02/27/20 History Metformin HCl [Metformin HCl ER] 500 mg PO DAILY 02/28/20 02/28/20 History norethindrone-e.estradioL-iron 1 tab PO DAILY 02/28/20 02/28/20 History [Junel Fe 1 mg-20 Mcg Tablet] Height: 1.73 m Weight: 90.01 kg Laboratory Results:: Laboratory Results - last 24 hr 02/29/20 16:50: Vancomycin Trough 7.4 03/01/20 06:10: WBC 10.2, RBC 4.45, Hgb 12.7, Hct 38.3, MCV 86.0, MCH 28.6, MCHC 33.3, RDW 13.6, Plt Count 299, MPV 7.5, Neut % (Auto) 64.0, Lymph % (Auto) 26.3, [place] % (Auto) 7.0, Eos % (Auto) 2.1, Baso % (Auto) 0.5, Neut # (Auto) 6.6, Lymph # (Auto) 2.7, [place] # (Auto) 0.7, Eos # (Auto) 0.2, Baso # (Auto) 0.1 03/01/20 06:10: Sodium 138, Potassium 4.2, Chloride 104, Carbon Dioxide 27, Anion Gap 11.2, BUN 9, Creatinine 0.60, Estimated Creat Clear 214, Estimated GFR 129, Est GFR ( Amer) 156, Glucose 95, Calcium 9.3 Medical History: Reports:: Anxiety Denies:: Internal Pacemaker, Seizures Assessment and Plan (1) Abscess Status: Acute Category: Medical Code(s): L02.91 - Cutaneous abscess, unspecified (2) Anxiety Status: Chronic Category: Medical Code(s): F41.9 - Anxiety disorder, unspecified (3) Autism Status: Chronic Category: Medical Code(s): F84.0 - Autistic disorder (4) Obesity (BMI 30.0-34.9) Status: Acute Category: Medical Code(s): E66.9 - Obesity, unspecified - Assessment and plan all Dx Assessment and Plan for all problems:: BASED ON PATIENT FACTORS AND VANCOMYCIN TROUGH LEVEL, RECOMMEND CHANGING VANCOMYCIN DOSE AND INTERVAL TO VANCOMYCIN 1750 MG IV Q8H. PHARMACY WILL CONTINUE TO MONITOR DAILY AND ADJUST APPROPRIATE.
--- NOTE | 2020-03-01 14:12 | P.PN_ITS ---
Internal Medicine - PN: Subj *Date: 03/01/20 *Time: 14:12 Exam Vital signs and Labs for Last 24 Hours: Temp Pulse Resp BP Pulse Ox 98.2 F 100 H 18 126/66 97 03/01/20 08:00 03/01/20 09:06 03/01/20 08:00 03/01/20 08:00 03/01/20 08:00 Laboratory Results - last 24 hr 02/29/20 16:50: Vancomycin Trough 7.4 03/01/20 06:10: WBC 10.2, RBC 4.45, Hgb 12.7, Hct 38.3, MCV 86.0, MCH 28.6, MCHC 33.3, RDW 13.6, Plt Count 299, MPV 7.5, Neut % (Auto) 64.0, Lymph % (Auto) 26.3, [place] % (Auto) 7.0, Eos % (Auto) 2.1, Baso % (Auto) 0.5, Neut # (Auto) 6.6, Lymph # (Auto) 2.7, [place] # (Auto) 0.7, Eos # (Auto) 0.2, Baso # (Auto) 0.1 03/01/20 06:10: Sodium 138, Potassium 4.2, Chloride 104, Carbon Dioxide 27, Anion Gap 11.2, BUN 9, Creatinine 0.60, Estimated Creat Clear 214, Estimated GFR 129, Est GFR ( Amer) 156, Glucose 95, Calcium 9.3 I & O for Last 24 hours: Intake & Output 02/27/20 02/28/20 02/29/20 03/01/20 23:59 23:59 23:59 23:59 Intake Total 240 / 240 2033 / 2153 2364 / 2364 840 / 840 Output Total 1700 / 1700 250 / 250 Balance 240 / 240 333 / 453 2114 / 2114 840 / 840 Weight 90.52 kg 89.018 kg 87.203 kg 90.01 kg Microbiology Reports for the Last 24 Hours: Microbiology 02/28/20 12:00 Thigh - Right - Final 02/28/20 12:00 Thigh - Right - Final 02/28/20 12:00 Thigh - Right - Final 02/27/20 14:30 Blood Blood Culture - Preliminary NO GROWTH AFTER 48 HOURS 02/27/20 14:30 Blood Blood Culture - Preliminary NO GROWTH AFTER 48 HOURS 02/28/20 12:00 Thigh - Right Gram Stain - Final 02/28/20 12:00 Thigh - Right Abscess Culture - Preliminary Gram Positive Cocci Assessment and Plan (1) Abscess Status: Acute Category: Medical Code(s): L02.91 - Cutaneous abscess, unspecified (2) Anxiety Status: Chronic Category: Medical Code(s): F41.9 - Anxiety disorder, unspecified (3) Autism Status: Chronic Category: Medical Code(s): F84.0 - Autistic disorder (4) Obesity (BMI 30.0-34.9) Status: Acute Category: Medical Code(s): E66.9 - Obesity, unspecified The patient's infection will respond to the chosen ABx?: Yes Is the patient receiving the right drug, dose, and route?: Yes Could a more targeted ABx be ordered?: No (AWAITING ABSCESS CULTURE)
[2020-03-01 15:26] VITALS: BP 98/55; PULSE 86; RESP 18; TEMP 36.8; O2SAT 96
[2020-03-01 20:00] VITALS: BP 141/69; PULSE 85; RESP 17; TEMP 36.9; O2SAT 96
--- NOTE | 2020-03-01 20:15 | PC.NURSE ---
PATIENT A&O X3, LUNGS CLEAR, PULSES EQUAL. PATIENT TOLERATED WOUND DRESSING CHANGE. PATIENT AMBULATED TO RESTROOM, GAIT STEADY, PATIENT TOLERATED MEALS. NO CONCERNS AT THIS TIME.
[2020-03-02 04:00] VITALS: BP 111/61; PULSE 94; RESP 17; TEMP 36.6; O2SAT 96
--- NOTE | 2020-03-02 06:02 | PC.NURSE ---
Pt is A&Ox4. Lung sounds clear t/o per auscultation. Active bowel sounds in all 4 quads. No BM noted this shift. Pt continues to be on RA. Dressing on LLE remains CDI. Mother remains at bedside. No other acute changes or complaints this shift. Will continue to monitor.
[2020-03-02 07:30] LABS: Basophils % 0.4 % (0.1-2.0); Eosinophils # 0.2 K/mm3 (0.0-0.4); Eosinophils % 1.6 % (0.1-12.0); Hematocrit 37.3 % (37.0-47.0); Hemoglobin 12.5 g/dL (12.2-16.2); Lymphocytes # 2.2 K/mm3 (0.7-4.5); Mean Corpuscular HGB Conc 33.6 g/dL (31.8-35.4); Mean Corpuscular Hemoglobin 28.6 pg (27.0-31.2); Mean Platelet Volume 7.2 fl (7.4-10.4); Monocytes # 0.7 K/mm3 (0.1-1.0); Monocytes % 6.3 % (1.7-9.3); Neutrophils # 8.3 K/mm3 (1.8-7.8); Neutrophils % 72.7 % (37.0-80.0); Platelet Count 299 K/mm3 (142-424); Red Blood Count 4.39 M/mm3 (4.20-5.40); Red Cell Distribution Width 13.4 % (11.5-17.5); White Blood Count 11.4 K/mm3 (4.5-13.0)
[2020-03-02 07:32] LABS: Chloride 105 mmol/L (98-107); Sodium 137 mmol/L (136-145)
[2020-03-02 07:35] LABS: Blood Urea Nitrogen 7 mg/dl (7-17); Creatinine Clearance Estimated 257 mL/min (50-200); Estimated Glomerular Filt Rate 159 ml/min (>60); GFR (African American) 192 ML/MIN (>60)
[2020-03-02 07:36] LABS: Carbon Dioxide 24 mmol/L (22.0-30.0); Glucose 95 mg/dl (74-100)
[2020-03-02 07:52] VITALS: BP 129/62; PULSE 60; RESP 17; TEMP 37; O2SAT 98
--- NOTE | 2020-03-02 08:08 | HMH.DCSUM ---
General - General Admission date:: 02/27/20 Discharge date: 03/02/20 HPI HPI: 19-year-old female on the autism spectrum disorder. Apparently she has had a abscess on the lower right lateral thigh for about 1 week. Per mom this started as a small pimple-like area. per mom she did try to squeeze it without being able to express any contents. It subsequently became much larger within 2 days. She was brought to the urgent treatment center this afternoon due to the significant swelling and redness of the area. surgery consult, due to her autism it was felt that she would require inpatient management with incision and drainage done under anesthesia. Hospital Course Hospital Course: 19-year-old female on the autism spectrum disorder. Apparently she has had a abscess on the lower right lateral thigh for about 1 week. Per mom this started as a small pimple-like area. per mom she did try to squeeze it without being able to express any contents. It subsequently became much larger within 2 days. She was brought to the urgent treatment center this afternoon due to the significant swelling and redness of the area. surgery consult, due to her autism it was felt that she would require inpatient management with incision and drainage done under anesthesia. 02/28/20 An Incision and drainage of right thigh abscess with debridement of skin and subcutaneous tissue per Roshan Elam MD Patient was taken to the operating room. She was given preoperative intravenous clindamycin. She was positioned in the supine position. General anesthesia was induced. Area was prepped and draped. There was a punctate eschar. Incision was made adjacent to this. There was very thick pus which exuded from the wound. This was sent for culture. The wound was inspected. There was underlying necrotic tissue. Therefore sequential debridement of the necrotic tissue was performed to relatively healthy appearing tissue. This resulted in overall defect approximately 2.5 cm diameter. It was approximately 1 cm in depth. The wound was thoroughly irrigated. Hemostasis was achieved with electrocautery. Local anesthetic was infiltrated. Wound was packed with saline moistened gauze and covered with clean dry sterile dressing. Operative findings:: She has soft tissue infection with abscess with focal necrotizing cellulitis. Patient's lab work has been unremarkable, CBC and BMP within normal limits Wound culture grew out MRSA and she has been on vancomycin IV during her stay and will be discharged home on Bactrim DS twice daily for 5 days to complete her antibiotic course Patient sitting up in bed respirations easy even, dressing to right thigh is clean dry and intact it has been changed by surgery. Mother at bedside, explained patient will be discharged home patient and mother are agreeable to this will follow-up with PCP in 1 week and with general surgery in 2 weeks. Proper dressing change technique explained and displayed for mother, mother reports feeling comfortable with changes and will call with any questions PLAN: 1. We will discharge home 2. Bactrim DS 1 tablet twice daily for 5 days 3. Follow-up with PCP in 1 week 4. Follow-up with general surgery in 2 weeks 5. Daily dressing changes, mother verbalizes understanding and feels comfortable with changes Objective Vital signs: Temp Pulse Resp BP Pulse Ox 98.6 F 60 17 129/62 98 03/02/20 07:52 03/02/20 07:52 03/02/20 07:52 03/02/20 07:52 03/02/20 07:52 no acute distress - *Routine HEENT Exam Head: Present: normocephalic Eye: Present: EOMI ENT: Present: mucous membranes moist - *Routine Neck Exam Present: trachea midline. Absent: tracheal deviation - *Routine Respiratory Exam Present: CTA bilaterally. Absent: accessory muscle use, patient mechanically ventilated - *Routine Cardiovascular Exam Present: RRR. Absent: bradycardia - *Routine Abdominal Exam Present: s
[2020-03-02 08:24] LABS: Vancomycin,Trough 11.9 ug/mL (5.0-10.0)
--- NOTE | 2020-03-02 10:00 | P.CONPHA_ITS ---
- Pharmacy Consult Date: 03/02/20 Time: 10:00 Referring provider: DR. WAKEFIELD Reason for Consult:: VANCOMYCIN TROUGH LEVEL Allergies and ADEs:: Allergies Allergy/AdvReac Type Severity Reaction Status Date / Time No Known Allergies Allergy Verified 01/27/19 14:40 Home Medications:: Home Medications Medication Instructions Recorded Confirmed Type PARoxetine HCl [Paxil] 10 mg PO DAILY 02/27/20 02/27/20 History Metformin HCl [Metformin HCl ER] 500 mg PO DAILY 02/28/20 02/28/20 History norethindrone-e.estradioL-iron 1 tab PO DAILY 02/28/20 02/28/20 History [Junel Fe 1 mg-20 Mcg Tablet] Sulfamethoxazole/Trimethoprim 1 each PO BID 5 Days #10 tab 03/02/20 Rx [Bactrim DS tablet] Height: 1.73 m Weight: 90.01 kg Laboratory Results:: Laboratory Results - last 24 hr 03/02/20 07:10: WBC 11.4, RBC 4.39, Hgb 12.5, Hct 37.3, MCV 85.0, MCH 28.6, MCHC 33.6, RDW 13.4, Plt Count 299, MPV 7.2 L, Neut % (Auto) 72.7, Lymph % (Auto) 19.0, [place] % (Auto) 6.3, Eos % (Auto) 1.6, Baso % (Auto) 0.4, Neut # (Auto) 8.3 H, Lymph # (Auto) 2.2, [place] # (Auto) 0.7, Eos # (Auto) 0.2, Baso # (Auto) 0.0 03/02/20 07:10: Sodium 137, Potassium 4.0, Chloride 105, Carbon Dioxide 24, Anion Gap 12.0, BUN 7, Creatinine 0.50 L, Estimated Creat Clear 257, Estimated GFR 159, Est GFR ( Amer) 192 D, Glucose 95, Calcium 9.0 03/02/20 07:10: Vancomycin Trough 11.9 H Medical History: Reports:: Anxiety Denies:: Internal Pacemaker, Seizures Assessment and Plan (1) Abscess Status: Acute Category: Medical Code(s): L02.91 - Cutaneous abscess, unspecified (2) Anxiety Status: Chronic Category: Medical Code(s): F41.9 - Anxiety disorder, unspecified (3) Autism Status: Chronic Category: Medical Code(s): F84.0 - Autistic disorder (4) Obesity (BMI 30.0-34.9) Status: Acute Category: Medical Code(s): E66.9 - Obesity, unspecified (5) MRSA (methicillin resistant staph aureus) culture positive Status: Acute Category: Medical Code(s): Z22.322 - Carrier or suspected carrier of Methicillin resistant Staphylococcus aureus - Assessment and plan all Dx Assessment and Plan for all problems:: BASED ON VANCOMYCIN TROUGH LEVEL AND PATIENT FACTORS, RECOMMEND PATIENT CONTINUE VANCOMYCIN 1750 MG IV Q8H. PATIENT IS BEING DISCHARGED TODAY.
== END 2020-03-02 11:47 | disposition home or self-care (01) | DRG 580 ==
LOC: UTC 14:22 → 2ND 02-28 08:45
PROVIDERS: Surgery; Admitting Provider Family Medicine; Emergency Provider Nurse Practitioner Family; PCP Emergency Medicine; Visit Provider Family Medicine
DX: L02.415 Cutaneous abscess of right lower limb (principal); F84.0 Autistic disorder; B95.62 Methicillin resistant Staphylococcus aureus infection as the cause of diseases classified elsewhere; L03.115 Cellulitis of right lower limb
CPT/HCPCS: 11042; 36415; 80048; 80053; 80202; 83605; 84703; 85025; 86328; 87040; 87070; 87075; 87077; 87186; 87205; 88304; 99203; G0378; J2405; J3370

== ENCOUNTER 2020-03-28 23:21 | Emergency (ER) | payer MEDICAID, SELFPAY ==
[2020-03-29 00:07] VITALS: BP 134/64; PULSE 79; RESP 15; TEMP 36.8; O2SAT 98; BMI 29.2
[2020-03-29 00:13] VITALS: BP 134/64; PULSE 89; RESP 16; TEMP 36.7; O2SAT 97
--- NOTE | 2020-03-29 00:53 | HMH.EDGENADL ---
ED Disposition Clinical Impression: Furuncle Disposition: Home, Self-Care Condition on Discharge: Good Instructions: DI for Skin Abscess Additional Instructions: Use the topical bacitracin 2 times per day and take the antibiotic, return with concerns Prescriptions: Doxycycline Hyclate [Doxycycline 100mg Capsule] 100 mg PO BID 7 Days #14 cap Prescription Printed Referrals: Seth Steele MD [Primary Care Provider] - - Critical Care Critical Care Time: No Attestation: On 03/28/20, the high probability of a clinically significant, sudden or life threatening deterioration of the following system(s) required my full and direct attention, intervention and personal management. The time I documented below is in addition to time spent performing reported procedures but includes the following listed in this critical care notation. Medical Decision Making - Kurt Inquiry Pt receiving controlled substance: No Vital Signs: 03/29/20 00:07 03/29/20 00:13 Temperature 98.2 F 98.1 F Temperature Source Oral Oral Pulse Rate 89 Pulse Rate [Right Brachial] 79 Respiratory Rate 15 16 Blood Pressure 134/64 Blood Pressure [Right Arm] 134/64 Blood Pressure Mean [Right Arm] 87 Blood Pressure Source Automatic Cuff Blood Pressure Source [Right Arm] Automatic Cuff Blood Pressure Position Sitting Blood Pressure Position [Right Arm] Sitting 02 Sat by Pulse Oximetry 98 Oxygen Delivery Method Room Air Medical Decision Narrative: Patient presents with furuncle to face. No systemic symptoms. No other complaints. No obvious drainable abscess. Will give topical and oral abx and have her follow up. General Adult HPI - General Chief complaint: Skin/Abscess/Foreign Body Stated complaint: sore on face Time Seen by Provider: 03/29/20 00:08 Mode of Arrival: Ambulatory Limitations: Mentally delayed Description of Symptoms (Recalled from ER Triage Doc. by RN): abscess to right side face - History of Present Illness HPI narrative: The patient is a 19 year old female with a history of anxiety who presents to the ED with skin infection. The patient states for the last few days she has had a boil on her face. She was recently admitted (a month ago) for a cellulitis / abscess to her leg so they were worried about this becoming more severe. They have been applying tea tree oil to the area without improvement. No fever, N/V/D. - Related Data Home Medications Medication Instructions Recorded Confirmed PARoxetine HCl [Paxil] 10 mg PO DAILY 02/27/20 02/27/20 Metformin HCl [Metformin HCl ER] 500 mg PO DAILY 02/28/20 02/28/20 norethindrone-e.estradioL-iron 1 tab PO DAILY 02/28/20 02/28/20 [Junel Fe 1 mg-20 Mcg Tablet] Previous Rx's Medication Instructions Recorded Sulfamethoxazole/Trimethoprim 1 each PO BID 5 Days #10 tab 03/02/20 [Bactrim DS tablet] Doxycycline Hyclate [Doxycycline 100 mg PO BID 7 Days #14 cap 03/29/20 100mg Capsule] Allergies Allergy/AdvReac Type Severity Reaction Status Date / Time No Known Allergies Allergy Verified 01/27/19 14:40 [facility] History - Hepatitis A Screen Drug use history?: No High risk sexual behaviors?: No History of sexually transmitted infection?: No Currently employed?: No Childcare worker?: No Do you have indoor plumbing?: Yes Do you have electricity?: Yes Attestation statement:: This patient has been screened for Hepatitis A risk factors. Medical History: Reports:: Anxiety Denies:: Internal Pacemaker, Seizures Other Medical History: Denies: Blood Transfusion Reaction Comment: autiusm Laterality Cases: Bilateral: Tonsillectomy Other Surgeries: No: Pacemaker Amputation: No Fractures: No - Social History Smoking Status: Never smoker Alcohol Intake: never Alcohol Intake Frequency:: other Substance Use Type: denies use Occupational Status: unemployed Housing: house Household Members: spouse, family - Psychiatric History Pschychiatric Hist
== END 2020-03-29 00:22 | disposition home or self-care (01) ==
LOC: ER 03-29 00:21
PROVIDERS: Emergency Provider Emergency Medicine; PCP Emergency Medicine
DX: L02.02 Furuncle of face (principal)
CPT/HCPCS: 99281

== ENCOUNTER 2020-07-12 17:15 | Emergency (ER) | payer MEDICAID, SELFPAY ==
[2020-07-12 17:24] VITALS: BP 132/82; PULSE 105; RESP 14; O2SAT 96; BMI 30.8
--- NOTE | 2020-07-12 17:34 | HMH.EDUTC ---
[facility] [place] Clinical Impression: Furuncle, Abscess Disposition: Home, Self-Care Condition on Discharge: Good Instructions: Boil Additional Instructions: If she will eat yogurt, encourage her to eat it frequently while she is on the antibiotics. Take the medications and apply the topical medication as directed. Follow up with your primary care provider in 24 to 48 hours for a wound recheck. GO TO THE ER FOR ANY WORSENING SYMPTOMS OR CONCERNS, ESPECIALLY ANY FEVER/CHILLS/WORSENING REDNESS AND ANY OTHER SIGNS OF WORSENING INFECTION Prescriptions: Sulfamethoxazole/Trimethoprim [Bactrim DS tablet] 1 each PO BID 10 Days #20 tab Transmission Status: Received by [facility] Mupirocin [Bactroban 2% Ointment 22gm tube] 1 applicatio TP TID 7 Days #1 tube Transmission Status: Received by [facility] cephALEXin [cephALEXin 500mg capsule] 500 mg PO Q6H 10 Days #40 cap Transmission Status: Received by [facility] Referrals: Seth Steele MD [Primary Care Provider] - Time of Disposition: 18:24 Medical Decision Making - Medical Records Medical records reviewed: No: I reviewed the patient's medical records. - Kurt Inquiry Pt receiving controlled substance: No Vital Signs: 07/12/20 17:24 07/12/20 18:31 Temperature 98.7 F Temperature Source Tympanic Oral Pulse Rate 105 H Pulse Rate [Right Brachial] 105 H Respiratory Rate 14 14 Blood Pressure 132/82 Blood Pressure [Right Arm] 132/82 Blood Pressure Mean [Right Arm] 98 Blood Pressure Source Automatic Cuff Blood Pressure Source [Right Arm] Automatic Cuff Blood Pressure Position Sitting Blood Pressure Position [Right Arm] Sitting 02 Sat by Pulse Oximetry 96 Oxygen Delivery Method Room Air Room Air Orders (Tests/Meds): ED MEDICATIONS Discontinued Medications Generic Name Dose Route Start Last Admin Trade Name Freq PRN Reason Stop Dose Admin Ceftriaxone Sodium 1 gm 07/12/20 17:40 Ceftriaxone 1gm Vial IM 07/12/20 17:41 ONCE ONE Protocol Ceftriaxone Sodium 1,000 mg 07/12/20 18:14 07/12/20 18:15 Ceftriaxone 500mg Vial IM 07/12/20 18:15 1,000 mg ONCE ONE Administration Protocol Lidocaine HCl 0 ml 07/12/20 18:14 07/12/20 18:16 Lidocaine 1% 5ml Pf Vial IM 07/12/20 18:15 2.1 ml ONCE ONE Administration ORDERS Category Date Time Status Wound Culture and Gram Stain Stat Micro 07/12/20 17:50 Received Medical Decision Narrative: The abscess does not appear ready to drain at this time. She is to follow up closely with her pcp for further treatment. [facility] [place] - General Stated complaint: POSSIBLE INSECT BITE r tHIGH Time Seen by Provider: 07/12/20 17:34 Mode of Arrival: Ambulatory Source of Information: Patient, Parent(s) Limitations: No Limitations Description of Symptoms (Recalled from Triage Doc. by RN): Insect bites on right thigh that may be infected. HEENT Symptoms (Recalled from RN notes): No Resp Symptoms (Recalled from RN notes): No Skin Symptoms (Recalled from RN notes): Yes MS Symptoms (Recalled from RN notes): No Functional Status (Recalled from RN notes): wnl - History of Present Illness Provider Complaint: She states that she has had a red area on the top of her left thigh for the past 3 days. Over the past 12 hours it has became more red around it. It has not drained anything yet. 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 - Related Data Home Medications Medication Instructions Recorded Confirmed PARoxetine HCl [Paxil] 10 mg PO DAILY 02/27/20 04/04/20 norethindrone-e.estradioL-iron 1 tab PO DAILY 02/28/20 04/04/20 [Junel Fe 1 mg-20 Mcg Tablet] Previous Rx's Medication Instructions Recorded Doxycycline Hyclate [Doxycycline 100 mg PO BID 7 Days #14 cap 03/29/20 100mg Capsule] Mupirocin [Bactroban 2% Ointment 1 applicatio TP TID 7 Days #1 tube 07/12/20 22gm tube] Sulfameth
[2020-07-12 18:31] VITALS: BP 132/82; PULSE 105; RESP 14; TEMP 37.1; O2SAT 96
--- NOTE | 2020-07-15 09:49 | PC.NURSE ---
Received positive wound culture results. Spoke with Andra about results and advised pt was covered with the shot and medication she was prescribed.
== END 2020-07-12 18:33 | disposition home or self-care (01) ==
PROVIDERS: Emergency Provider Nurse Practitioner Family; PCP Emergency Medicine
DX: L02.425 Furuncle of right lower limb (principal); S70.362A Insect bite (nonvenomous), left thigh, initial encounter; F41.9 Anxiety disorder, unspecified
CPT/HCPCS: 87070; 87077; 87186; 87205; 96372; 99202; G0463

== ENCOUNTER 2020-08-29 17:32 | Emergency (ER) | payer MEDICAID, SELFPAY ==
[2020-08-29 17:42] VITALS: BP 145/95; PULSE 125; RESP 20; TEMP 37.2; O2SAT 99; BMI 31.4
[2020-08-29 17:56] VITALS: BP 145/95; PULSE 125; RESP 14; TEMP 37.2; O2SAT 99; BMI 31.3
--- NOTE | 2020-08-29 18:14 | HMH.EDUTC ---
[facility] [place] Clinical Impression: Strep throat Tick bite Qualifiers: Encounter type: initial encounter Qualified Code(s): W57.XXXA - Bitten or stung by nonvenomous insect and other nonvenomous arthropods, initial encounter Disposition: Home, Self-Care Condition on Discharge: Good Instructions: How to Remove a Tick, Strep Throat, DI for Strep Throat Additional Instructions: Watch area surrounding the tick bite for worsening of redness and bullseye type rash Follow up with Family Doctor if no improvement or any worsening of symptoms Return if needed Straight to ER if any life threatening symptoms Prescriptions: Amoxicillin [Amoxicillin 500mg Cap] 500 mg PO TID 14 Days #42 cap Transmission Status: Pending to [facility] Referrals: Seth Steele MD [Primary Care Provider] - As needed Time of Disposition: 18:39 Medical Decision Making - Kurt Inquiry Pt receiving controlled substance: No Kurt was queried for this patient: No Vital Signs: 08/29/20 17:42 08/29/20 17:56 08/29/20 18:27 Temperature 98.9 F 98.9 F 98.9 F Temperature Source Oral Oral Pulse Rate 105 H Pulse Rate [Left Radial] 125 H 125 H Respiratory Rate 20 14 19 Blood Pressure 00/00 L Blood Pressure [Right Arm] 145/95 H 145/95 H Blood Pressure Mean [Right Arm] 111 111 Blood Pressure Source [Right Arm] Automatic Cuff Automatic Cuff Blood Pressure Position [Right Arm] Sitting Sitting 02 Sat by Pulse Oximetry 99 99 Oxygen Delivery Method Room Air Room Air - Lab Data Lab Results 08/29/20 18:09: Influenza Type A Ag Negative, Influenza Type B Ag Negative 08/29/20 18:09: Strep [facility] Positive A Medical Decision Narrative: Medication discussed with pharmacy and due to tick bite red rash that appears around tick bite and positive for strep will treat with Amoxicillin 500mg TID x 14 days to cover both strep and tick bite [facility] [place] - General Stated complaint: fever,nausa,Diarrhea, bite by tick Time Seen by Provider: 08/29/20 18:00 Mode of Arrival: Ambulatory Source of Information: Patient Limitations: No Limitations Description of Symptoms (Recalled from Triage Doc. by RN): pt states she was bitten by a tick 08/23/20. pt now states she is running a fever. pt is 98.9 at this time. HEENT Symptoms (Recalled from RN notes): No Resp Symptoms (Recalled from RN notes): No Skin Symptoms (Recalled from RN notes): No MS Symptoms (Recalled from RN notes): No Functional Status (Recalled from RN notes): na - History of Present Illness Provider Complaint: Mother states that she was bitten by tick on the top of pubic area about a week ago and she scratched off the tick States that they looked and noticed it was looking red and put some tea tree oil on it State that now she has been having a fever at home, nausea vomiting and some diarrhea and was worried that it may be from the tick bite so they brought her in - Related Data Home Medications Medication Instructions Recorded Confirmed PARoxetine HCl [Paxil] 10 mg PO DAILY 02/27/20 04/04/20 norethindrone-e.estradioL-iron 1 tab PO DAILY 02/28/20 04/04/20 [Junel Fe 1 mg-20 Mcg Tablet] Previous Rx's Medication Instructions Recorded Doxycycline Hyclate [Doxycycline 100 mg PO BID 7 Days #14 cap 03/29/20 100mg Capsule] Mupirocin [Bactroban 2% Ointment 1 applicatio TP TID 7 Days #1 tube 07/12/20 22gm tube] Sulfamethoxazole/Trimethoprim 1 each PO BID 10 Days #20 tab 07/12/20 [Bactrim DS tablet] cephALEXin [cephALEXin 500mg 500 mg PO Q6H 10 Days #40 cap 07/12/20 capsule] Amoxicillin [Amoxicillin 500mg 500 mg PO TID 14 Days #42 cap 08/29/20 Cap] Allergies Allergy/AdvReac Type Severity Reaction Status Date / Time No Known Allergies Allergy Verified 08/29/20 18:00 - Worker's Comp Is this a Worker's Comp case?: No [facility] History - Hepatitis A Screen Drug use history?: No High risk sexual behaviors?: No History of sexually tr
[2020-08-29 18:27] VITALS: BP 00/00; PULSE 105; RESP 19; TEMP 37.2
[2020-08-29 18:30] LABS: UTC Influenza A Antigen Negative (Negative); UTC Influenza B Antigen Negative (Negative); UTC Strep Screen (Rapid) Positive (Negative)
== END 2020-08-29 18:53 | disposition home or self-care (01) ==
PROVIDERS: Emergency Provider Nurse Practitioner; PCP Emergency Medicine
DX: J02.0 Streptococcal pharyngitis (principal); S30.861A Insect bite (nonvenomous) of abdominal wall, initial encounter; W57.XXXA Bitten or stung by nonvenomous insect and other nonvenomous arthropods, initial encounter; F41.9 Anxiety disorder, unspecified
CPT/HCPCS: 87804; 87880; 99202; G0463